=== PATIENT | male | born 1990 ===

== ENCOUNTER 2020-02-28 07:24 | Emergency (ER) | payer SELFPAY ==
[2020-02-28] MEDS ORDERED: KETOROLAC 30 MG/1 ML INJ IM ONE (07:32)
[2020-02-28] MEDS ORDERED: ONDANSETRON 4 MG/2 ML INJ IV ONE ×2 (07:32→09:12)
[2020-02-28] MEDS ORDERED: SODIUM CHLORIDE 0.9% 1000 ML 1,000 ML IV ONE ×2 (07:34→09:12)
[2020-02-28] MEDS ORDERED: MORPHINE 4 MG/1 ML INJ IV ONE ×2 (07:40→09:12)
--- NOTE | 2020-02-28 07:40 | Emergency Department Report ---
ED Abdominal Pain HPI - General Chief Complaint: Abdominal Pain Stated Complaint: back side pain Time Seen by Provider: 02/28/20 07:31 Source: patient Mode of arrival: Ambulatory Limitations: No Limitations - History of Present Illness Initial Comments: 29-year-old male presents to the emergency room for back and left flank pain that abruptly started at 6 AM this morning. Patient states it woke him up from sleep. Patient admits to nausea vomiting but denies any diarrhea. Patient denies any history of kidney stones. Patient reports some urinary urgency but denies any hematuria. Patient states that his pain was a 10 out of 10 when he came to the emergency room but after medications is down to 4 out of 10 but starting to increase. Patient denies any past medical history currently takes no medications on a daily basis and has no known drug allergies. MD Complaint: flank pain - Related Data Previous Rx's Medication Instructions Recorded Last Taken Type Ketorolac [Toradol] 10 mg PO Q6H PRN #15 tablet 02/28/20 Unknown Rx Oxycodone HCl/Acetaminophen 1 each PO Q6HR PRN #12 tablet 02/28/20 Unknown Rx [Percocet 7.5/325 mg] Tamsulosin [Flomax] 0.4 mg PO QDAY 5 Days #5 capsule 02/28/20 Unknown Rx Allergies Allergy/AdvReac Type Severity Reaction Status Date / Time No Known Allergies Allergy Unverified 02/28/20 07:25 ED Review of Systems ROS: Stated complaint: back side pain Other details as noted in HPI ED Past Medical Hx - Past Medical History Previous Medical History?: No - Surgical History Past Surgical History?: No - Social History Smoking Status: Current Every Day Smoker - Medications Home Medications: Home Medications Medication Instructions Recorded Confirmed Last Taken Type Ketorolac [Toradol] 10 mg PO Q6H PRN #15 tablet 02/28/20 Unknown Rx Oxycodone HCl/Acetaminophen 1 each PO Q6HR PRN #12 tablet 02/28/20 Unknown Rx [Percocet 7.5/325 mg] Tamsulosin [Flomax] 0.4 mg PO QDAY 5 Days #5 capsule 02/28/20 Unknown Rx ED Physical Exam - General Limitations: No Limitations General appearance: alert, in no apparent distress - Head Head exam: Present: atraumatic, normocephalic - Eye Eye exam: Present: normal appearance - ENT ENT exam: Present: mucous membranes moist - Neck Neck exam: Present: normal inspection - Respiratory Respiratory exam: Present: normal lung sounds bilaterally. Absent: respiratory distress - Cardiovascular Cardiovascular Exam: Present: regular rate, normal rhythm. Absent: systolic murmur, diastolic murmur, rubs, gallop - GI/Abdominal GI/Abdominal exam: Present: soft, normal bowel sounds - Rectal Rectal exam: Present: deferred - Back Exam Back exam: Present: CVA tenderness (L) - Neurological Exam Neurological exam: Present: alert, oriented X3, normal gait - Psychiatric Psychiatric exam: Present: normal affect, normal mood - Skin Skin exam: Present: warm, dry, intact, normal color. Absent: rash ED Course Vital Signs 02/28/20 02/28/20 02/28/20 07:25 07:42 08:05 Temperature 97.1 F L Pulse Rate 74 Respiratory 22 22 18 Rate Blood Pressure 143/96 O2 Sat by Pulse 97 Oximetry 02/28/20 09:47 Temperature Pulse Rate Respiratory 18 Rate Blood Pressure O2 Sat by Pulse Oximetry ED Medical Decision Making - Lab Data Result diagrams: 02/28/20 07:36 02/28/20 07:36 - Radiology Data Radiology results: report reviewed Referring Physician:CARMEN TREVINOPatient Name:BERNIE SHINPatient ID:[id number] of :[id number]:MaleAccession:[id number] Date:[id number] Status:[place] [address] Cat Scan Report Signed Patient: BERNIE SHIN MR#: [id number] [birth year] : 1990 Acct:[id number] Age/Sex: 29 / M ADM Date: 02/28/20 Loc: ED Attending Dr: Ordering Physician: WINNIE WHITTAKER Date of Service: 02/28/20 Procedure(s): CT abdomen pelvis wo con Accession Number(s): [id number] cc: WINNIE WHITTAKER CT abdomen pelvis wo con INDICATION / CLINICAL INFORMATION: acute on set of right flank pain. TECHNIQUE: All CT scans at this location are performed using CT dose reduction for ALARA by means of automated exposure control. COMPARISON: None available. FINDINGS: No free fluid is seen in the abdomen. A small hiatal hernia is present. Stones are seen in both kidneys with left-sided hydronephrosis and hydroureter. The liver, spleen, pancreas, adrenal glands and great vessels are normal. No enlarged retroperitoneal or mesenteric lymph nodes are seen. In the pelvis, no free fluid is seen. There is a 3 mm stone present in the left UVJ with obstruction. No enlarged lymph nodes are identified. The bladder and the appendix are normal. No significant skeletal abnormality is seen. IMPRESSION: 1. 3 mm stone in the left UVJ with obstruction. There are stones in both kidneys. 2. Small hiatal hernia Signer Name: Tarun Wheeler MD FACR Signed: 02/28/2020 9:30 AM Workstation Name: [id number] Transcribed By: MS Dictated By: Tarun Wheeler MD Electronically Authenticated By: Tarun Wheeler MD Signed Date/Time: 02/28/20929 DD/ 4 TD/TT: - Medical Decision Making 29-year-old male presents to the emergency room for back and left flank pain that abruptly started at 6 AM this morning. Patient states it woke him up from sleep. Patient admits to nausea vomiting but denies any diarrhea. Patient denies any history of kidney stones. Patient reports some urinary urgency but denies any hematuria. Patient states that his pain was a 10 out of 10 when he came to the emergency room but after medications is down to 4 out of 10 but starting to increase. Patient denies any past medical history currently takes no medications on a daily basis and has no known drug allergies. Patient was started on kidney stone protocol which consist of CBC, BMP, IV, normal saline, Toradol 15 IV, morphine 4 mg IV, CT without contrast. Patient had to have an second round of pain medication which will consist of 4 mg of morphine another liter of fluids and Zofran 4 mg IV. Critical care attestation.: If time is entered above; I have spent that time in minutes in the direct care of this critically ill patient, excluding procedure time. ED Disposition Clinical Impression: Hydronephrosis of left kidney, Kidney stone on left side, Acute flank pain, Renal calculus, bilateral Disposition: - TO HOME OR SELFCARE Is pt being admited?: No Does the pt Need Aspirin: No Condition: Stable Instructions: Kidney Stones (ED), Flank Pain (ED) Additional Instructions: Take medication as prescribed. It is very important for you to follow-up with a urologist I have listed 1 below for your convenience. Prescriptions: Tamsulosin [Flomax] 0.4 mg PO QDAY 5 Days #5 capsule Oxycodone HCl/Acetaminophen [Percocet 7.5/325 mg] 1 each PO Q6HR PRN #12 tablet PRN Reason: Pain Ketorolac [Toradol] 10 mg PO Q6H PRN #15 tablet PRN Reason: Pain Referrals: PRIMARY CARE, [Primary Care Provider] - 3-5 Days FILIPE YUNG MD [Staff Physician] - 3-5 Days
[2020-02-28 07:50] LABS: Basophils # (Auto) 0.1 K/mm3 (0.0-0.1); Basophils % (Auto) 0.4 % (0.0-1.8); Eosinophils # (Auto) 0.1 K/mm3 (0.0-0.4); Eosinophils % (Auto) 0.5 % (0.0-4.3); Hematocrit 45.4 % (35.5-45.6); Hemoglobin 15.9 gm/dl (11.8-15.2); Lymphocytes # (Auto) 3.5 K/mm3 (1.2-5.4); Lymphocytes % (Auto) 27.3 % (13.4-35.0); Mean Corpuscular HGB Conc 35 % (32-34); Mean Corpuscular Volume 90 fl (84-94); Monocytes # (Auto) 0.8 K/mm3 (0.0-0.8); Monocytes % (Auto) 5.9 % (0.0-7.3); Platelet Count 238 K/mm3 (140-440); Red Blood Count 5.04 M/mm3 (3.65-5.03); Red Cell Distribution Width 12.5 % (13.2-15.2)
[2020-02-28 08:08] LABS: Alanine Aminotransferase 35 units/L (7-56); Albumin 4.8 g/dL (3.9-5); BUN/Creatinine Ratio 13; Blood Urea Nitrogen 12 mg/dL (9-20); Calcium 10.3 mg/dL (8.4-10.2); Hemolysis Index 9
--- NOTE | 2020-02-28 09:35 | Cat Scan Report ---
CT abdomen pelvis wo con INDICATION / CLINICAL INFORMATION: acute on set of right flank pain. TECHNIQUE: All CT scans at this location are performed using CT dose reduction for ALARA by means of automated e xposure control. COMPARISON: None available. FINDINGS: No free fluid is seen in the abdomen. A small hiatal hernia is present. Stones are seen in both kidne ys with left-sided hydronephrosis and hydroureter. The liver, spleen, pancreas, adrenal glands and gr eat vessels are normal. No enlarged retroperitoneal or mesenteric lymph nodes are seen. In the pelvis, no free fluid is seen. There is a 3 mm stone present in the left UVJ with obstruction. No enlarged lymph nodes are identified. The bladder and the appendix are normal. No significant skel etal abnormality is seen. IMPRESSION: 1. 3 mm stone in the left UVJ with obstruction. There are stones in both kidneys. 2. Small hiatal hernia Signer Name: Tarun Wheeler MD FACR Signed: 02/28/2020 9:30 AM Workstation Name: [id number]
[2020-02-28 09:53] LABS: Bilirubin,Urine NEG (Negative); Blood,Urine SM (Negative); Color,Urine Yellow (Yellow); Mucus,Urine 1+ /HPF; Protein,Urine <15 mg/dL mg/dL (Negative); Urobilinogen,Urine < 2.0 mg/dL (<2.0)
[2020-02-28] MEDS ORDERED: TAMSULOSIN 0.4 MG CAP PO ONE (10:30)
[2020-02-28 10:37] VITALS: BP 136/90
== END 2020-02-28 10:36 | disposition home or self-care (01) ==
LOC: ED 07:24
DX: N13.30 Unspecified hydronephrosis (principal); N20.0 Calculus of kidney; R11.2 Nausea with vomiting, unspecified; F17.200 Nicotine dependence, unspecified, uncomplicated; Z79.899 Other long term (current) drug therapy
CPT/HCPCS: 36415; 74176; 80053; 81001; 83690; 85025; 96361; 96372; 96374; 96375; 96376; 99284; J1885; J2270; J2405; J7030

== ENCOUNTER 2020-10-22 02:25 | Emergency (ER) | payer SELFPAY | END 2020-10-22 02:30 | disposition left against medical advice (07) | LOC: ED 02:25 | DX: N20.0 Calculus of kidney (principal); Z53.21 Procedure and treatment not carried out due to patient leaving prior to being seen by health care provider ==